=== PATIENT | male | born 1985 | race Caucasian/White ===

== ENCOUNTER 2016-06-16 08:42 | Emergency (ER) | payer SELFPAY ==
[2016-06-16] MEDS ORDERED: IPRATROPIUM/ALBUTEROL 3 ML VIAL NEB ONE (09:05)
[2016-06-16] MEDS ORDERED: IBUPROFEN 200 MG TAB PO ONE (09:06)
[2016-06-16] MEDS ORDERED: BENZONATATE PERLES 100 MG CAP PO ONE (09:06)
[2016-06-16] MEDS: AZITHROMYCIN 250 MG TAB PO ONE ×2 (09:13→09:14)
--- NOTE | 2016-06-16 09:53 | RAD ---
EXAM DESCRIPTION: XR CHEST 1 VIEW CLINICAL HISTORY: SOB, COUGH COMPARISON: None. IMPRESSION: Single AP portable upright view of the chest shows cardiac silhouette and pulmonary vasculature to be within normal limits. Lungs are normally aerated and clear. No obvious pleural effusion or pneumothorax is seen. Electronically signed by: Kai Cerna MD 06/16/2016 09:51
--- NOTE | 2016-06-16 10:00 | ED.PDOC ---
History of Present Illness - General Chief Complaint: Respiratory Problem Stated Complaint: Dont feel good Time Seen by Provider: 06/16/16 09:04 Source: patient Exam Limitations: no limitations - History of Present Illness Timing/Duration: other Cough Quality/Degree: no cough, productive cough Improving Factors: nothing Worsening Factors: nothing Associated Symptoms: cough, fever/chills, headache, nasal congestion Allergies/Adverse Reactions: Allergies NO KNOWN ALLERGY Allergy (Verified 06/15/12 07:50) Home Medications: Ambulatory Orders Tramadol HCl 50 mg PO Q6HR #20 tab 04/21/16 Albuterol Inhaler [Ventolin Hfa Inhaler] 2 puff INH Q4HR PRN #1 inh 06/16/16 Azithromycin Tab [Zithromax] 250 mg PO QD #4 tab 06/16/16 Benzonatate Perles [Tessalon Perles] 200 mg PO TID PRN #30 cap 06/16/16 Ibuprofen 800 mg PO Q8HR PRN #30 tab 06/16/16 Spacer/Aerosol-Holding Chamber [Aerochamber Plus] 1 mis INH DAILY #1 06/16/16 Review of Systems - Review of Systems Constitutional: States: chills, malaise EENTM: States: nose congestion. Denies: throat pain Respiratory: States: see HPI, cough, short of breath Cardiology: States: see HPI, chest pain. Denies: palpitations Gastrointestinal/Abdominal: Denies: abdominal pain, nausea, vomiting Musculoskeletal: Denies: joint pain, joint swelling Skin: Denies: change in color, dryness Neurological: States: headache. Denies: paresthesia Endocrine: States: no symptoms reported Hematologic/Lymphatic: States: no symptoms reported Past Medical History (General) - Patient Medical History Hx Seizures: No Hx Stroke: No Hx Dementia: No Hx Asthma: No Hx of COPD: No Hx Cardiac Disorders: Yes - Heart cath in 2014 - "they cleaned out some stuff" Hx Congestive Heart Failure: No Hx Pacemaker: No Hx Hypertension: Yes - "I don't take any meds" "I don't like to take meds" Hx Thyroid Disease: No Hx Diabetes: No Hx Gastroesophageal Reflux: No Hx Renal Disease: No Hx Cancer: No Hx of HIV: No Hx Hepatitis C: No Hx MRSA: No Surgical History: other - Vaccination History Hx Tetanus, Diphtheria Vaccination: Yes Hx Influenza Vaccination: No Hx Pneumococcal Vaccination: No Immunizations Up to Date: No - Social History Hx Tobacco Use: Yes Hx Chewing Tobacco Use: No Hx Alcohol Use: No Hx Substance Use: No Hx Substance Use Treatment: No Hx Depression: No Feels Threatened In Home Enviroment: No Hx Physical Abuse: No Hx Emotional Abuse: No Hx Suspected Abuse: No - Female History Patient is a Female of Child Bearing Age (10 -59 yrs old): No Patient : No - Triage Comment ED Triage Comment: Patient has had coughing and congestion for the past three days. Patient has not taken any OTC cold remedies because "I don't like to take meds" Family Medical History - Family History Mother Family History: No Known Physical Exam - Physical Exam General Appearance: Alert, Ill Appearing ENT Exam: hearing grossly normal, nasal congestion Neck: non-tender, full range of motion Respiratory: no respiratory distress, no accessory muscle use, wheezing Cardiovascular/Chest: regular rate, rhythm, no murmur Gastrointestinal/Abdominal: non tender, soft Extremity: normal range of motion, normal inspection Neurologic: normal mood/affect, oriented x 3 Skin Exam: normal color, warm/dry Progress - Progress Progress: 06/16/16 10:05 PT RESTING COMFORTABLY, REPORTS SOME IMPROVEMENT IN DYSPNEA AFTER DUONEB. COMPLETE RESOLUTION OF WHEEZING ON EXAM. - EKG/XRAY/CT Xray Comments: CXR NEGATIVE PER RADIOLOGY Departure - Departure Clinical Impression: Headache, Acute bronchitis Time of Disposition: 10:06 Disposition: Discharge to Home or Self Care Condition: Good Departure Forms: ED Discharge - Pt. Copy, Patient Portal Self Enrollment Instructions: DI for Acute Bronchitis Diet: resume usual diet Referrals: [facility] [Provider Group] - 1-2 Weeks Prescriptions: Albuterol Inhaler [Ventolin Hfa Inhaler] 2 puff INH Q4HR PRN #1 inh PRN Reason: Shortness Of Breath/Wheezing Ibuprofen 800 mg PO Q8HR PRN #30 tab PRN Reason: Pain Spacer/Aerosol-Holding Chamber [Aerochamber Plus] 1 mis INH DAILY #1 Benzonatate Perles [Tessalon Perles] 200 mg PO TID PRN #30 cap PRN Reason: Cough Azithromycin Tab [Zithromax] 250 mg PO QD #4 tab Home Medications: Ambulatory Orders Tramadol HCl 50 mg PO Q6HR #20 tab 04/21/16 Albuterol Inhaler [Ventolin Hfa Inhaler] 2 puff INH Q4HR PRN #1 inh 06/16/16 Azithromycin Tab [Zithromax] 250 mg PO QD #4 tab 06/16/16 Benzonatate Perles [Tessalon Perles] 200 mg PO TID PRN #30 cap 06/16/16 Ibuprofen 800 mg PO Q8HR PRN #30 tab 06/16/16 Spacer/Aerosol-Holding Chamber [Aerochamber Plus] 1 mis INH DAILY #1 06/16/16
[2016-06-16 10:45] VITALS: BP 116/61; TEMP 98.5; O2SAT 96
== END 2016-06-16 10:20 | disposition home or self-care (01) ==
LOC: ER 08:42
DX: J20.9 Acute bronchitis, unspecified (principal); R51 Headache; I10 Essential (primary) hypertension; I51.89 Other ill-defined heart diseases
CPT/HCPCS: 71010; 94640; 99284; J7620; Q0144

== ENCOUNTER 2016-07-17 09:15 | Emergency (ER) | payer SELFPAY ==
[2016-07-17] MEDS ORDERED: SODIUM CHLORIDE 0.9% (FLUSH) 10 ML SYG IV PRN (09:21)
[2016-07-17] MEDS ORDERED: ASPIRIN TABLET 325 MG TAB PO ONE (09:21)
[2016-07-17] MEDS ORDERED: ASPIRIN (CHEWABLE) 81 MG TAB ONE (09:21)
[2016-07-17] MEDS ORDERED: NITROGLYCERIN 0.4 MG 25 EA TAB SL ONE (09:22)
[2016-07-17] MEDS: NITROGLYCERIN 0.4 MG 25 EA TAB SL ONE ×3 (09:33→10:05)
--- NOTE | 2016-07-17 09:49 | ED.PDOC ---
History of Present Illness - General Chief Complaint: Chest Pain/MD Stated Complaint: chest pain Time Seen by Provider: 07/17/16 09:24 Source: patient, RN notes reviewed, Vital Signs reviewed, family Exam Limitations: no limitations - History of Present Illness Initial Comments: Patient is a 31 y/o male who has had substernal and left chest pain since 0730 this AM. He reports that he has previously had a heart cath and they "cleaned out some of his arteries." He has not had a stent. His pain is a sharp pressure, severe and radiates to his left arm. He does have shortness of breath , nausea, and dizziness. He has a family history of heart disease. His father had an MD at age 35. He smokes. Timing/Duration: 4-6 hours, getting worse Severity: severe Improving Factors: nothing Worsening Factors: nothing Associated Symptoms: chest pain, nausea/vomiting, shortness of breath Allergies/Adverse Reactions: Allergies NO KNOWN ALLERGY Allergy (Verified 06/15/12 07:50) Home Medications: Ambulatory Orders Tramadol HCl 50 mg PO Q6HR #20 tab 04/21/16 Albuterol Inhaler [Ventolin Hfa Inhaler] 2 puff INH Q4HR PRN #1 inh 06/16/16 Azithromycin Tab [Zithromax] 250 mg PO QD #4 tab 06/16/16 Benzonatate Perles [Tessalon Perles] 200 mg PO TID PRN #30 cap 06/16/16 Ibuprofen 800 mg PO Q8HR PRN #30 tab 06/16/16 Spacer/Aerosol-Holding Chamber [Aerochamber Plus] 1 mis INH DAILY #1 06/16/16 Review of Systems - Review of Systems Constitutional: States: no symptoms reported EENTM: States: no symptoms reported Respiratory: States: short of breath Cardiology: States: chest pain Gastrointestinal/Abdominal: States: nausea Genitourinary: States: no symptoms reported Musculoskeletal: States: no symptoms reported Skin: States: no symptoms reported Neurological: States: no symptoms reported Endocrine: States: no symptoms reported Hematologic/Lymphatic: States: no symptoms reported All other Systems: Reviewed and Negative Past Medical History (General) - Patient Medical History Hx Seizures: No Hx Stroke: No Hx Dementia: No Hx Asthma: No Hx of COPD: No Hx Cardiac Disorders: Yes - Heart cath in 2013 - "they cleaned out some stuff" Hx Congestive Heart Failure: No Hx Pacemaker: No Hx Hypertension: Yes - "I don't take any meds" "I don't like to take meds" Hx Thyroid Disease: No Hx Diabetes: No Hx Gastroesophageal Reflux: No Hx Renal Disease: No Hx Cancer: No Hx of HIV: No Hx Hepatitis C: No Hx MRSA: No Surgical History: no surgical history - Vaccination History Hx Tetanus, Diphtheria Vaccination: Yes Hx Influenza Vaccination: No Hx Pneumococcal Vaccination: No - Social History Hx Tobacco Use: Yes Hx Chewing Tobacco Use: No Hx Alcohol Use: No Hx Substance Use: No Hx Substance Use Treatment: No Hx Depression: No Hx Physical Abuse: No Hx Emotional Abuse: No Hx Suspected Abuse: No - Female History Patient : No - Triage Comment ED Triage Comment: Pt states he started having chest pain at 0745 this am. Chest pain on left chest that radiates down left arm. Hx of cardiac cath. Family Medical History - Family History Mother Family History: No Known Physical Exam - Physical Exam General Appearance: Alert, Obvious distress Ears, Nose, Throat: hearing grossly normal Respiratory: chest non-tender, lungs clear, normal breath sounds, no respiratory distress, no accessory muscle use Cardiovascular/Chest: normal peripheral pulses, regular rate, rhythm, no edema, no gallop, no murmur Gastrointestinal/Abdominal: normal bowel sounds, non tender, soft, no organomegaly, no pulsatile mass Extremity: normal range of motion, non-tender, no pedal edema Neurologic: alert, normal mood/affect, oriented x 3 Skin Exam: normal color, other - mild diaphoresis Progress - Results/Orders Results/Orders: 07/17/16 07/17/16 07/17/16 09:15 09:20 09:25 Pulse Rate [ 81 66 Right] Respiratory 20 20 20 Rate Blood Pressure 160/107 155/76 [Right Arm] O2 Sat by Pulse 95 95 Oximetry 07/17/16 07/17/16 07/17/16 09:36 10:16 11:12 Pulse Rate [ 66 57 L Right] Respiratory 20 20 Rate Blood Pressure 140/88 119/67 [Right Arm] O2 Sat by Pulse 90 L 96 96 Oximetry 07/17/16 09:21 IV Care:Saline Lock per Protoc QSHIFT Telemetry .ONCE Sodium Chloride 0.9% (Flush) [Saline Flush Syringe] 10 ml IV PRN PRN EKG Stat Pulse Ox Stat Pulse Oximetry Assessment DAILY Laboratory Results WBC 5.5 K/mm3 (4.8-10.8) 07/17/16 09:30 RBC 5.78 M/mm3 (4.70-6.10) 07/17/16 09:30 Hgb 16.1 gm/dL (14.0-18.0) 07/17/16 09:30 Hct 47.8 % (42.0-52.0) 07/17/16 09:30 MCV 82.6 fl (80.0-94.0) 07/17/16 09:30 MCH 27.9 pg (27.0-31.0) 07/17/16 09:30 MCHC 33.8 g/dL (33.0-37.0) 07/17/16 09:30 RDW 13.6 % (11.5-14.5) 07/17/16 09:30 Plt Count 151 K/mm3 (130-400) 07/17/16 09:30 MPV 9.6 fl (7.40-10.4) 07/17/16 09:30 Absolute Neuts (auto) 3.30 K/uL (1.8-6.8) 07/17/16 09:30 Absolute Lymphs (auto) 1.40 K/uL (1.0-3.4) 07/17/16 09:30 Absolute Monos (auto) 0.60 K/uL (0.2-0.8) 07/17/16 09:30 Absolute Eos (auto) 0.10 K/uL (0.0-0.4) 07/17/16 09:30 Absolute Basos (auto) 0.00 K/uL (0.0-0.1) 07/17/16 09:30 Neutrophils % 60.5 % (42.0-78.0) 07/17/16 09:30 Lymphocytes % 25.0 % (20.0-50.0) 07/17/16 09:30 Monocytes % 11.2 % (2.0-9.0) H 07/17/16 09:30 Eosinophils % 2.4 % (1.0-5.0) 07/17/16 09:30 Basophils % 0.9 % (0.0-2.0) 07/17/16 09:30 PT 10.1 SECONDS (9.4-12.5) 07/17/16 09:30 INR 0.890 07/17/16 09:30 PTT (SP) 30.4 SECONDS (25.1-36.5) 07/17/16 09:30 D-Dimer, Quantitative < 200 ng/mL (0-230) 07/17/16 09:30 Sodium 136 mmol/L (135-145) 07/17/16 09:30 Potassium 4.1 mmol/L (3.6-5.0) 07/17/16 09:30 Chloride 104 mmol/L (101-111) 07/17/16 09:30 Carbon Dioxide 25 mmol/L (21-31) 07/17/16 09:30 Anion Gap 11.1 (12-18) L 07/17/16 09:30 BUN 16 mg/dL (7-18) 07/17/16 09:30 Creatinine 0.91 mg/dL (0.6-1.3) 07/17/16 09:30 BUN/Creatinine Ratio 17.6 (10-20) 07/17/16 09:30 Random Glucose 100 mg/dL (70-105) 07/17/16 09:30 Serum Osmolality 273.2 mOsm/L (275-295) L 07/17/16 09:30 Calcium 9.6 mg/dL (8.4-10.2) 07/17/16 09:30 Magnesium 2.0 mg/dL (1.8-2.5) 07/17/16 09:30 Creatine Kinase 111 IU/L (38-174) 07/17/16 13:01 CK-MB (CK-2) 1.8 ng/mL (0.0-4.4) 07/17/16 13:01 CK-MB (CK-2) % Not Reportable 07/17/16 13:01 Troponin I < 0.02 ng/mL (0.01-0.05) 07/17/16 13:01 B-Natriuretic Peptide < 5.0 pg/ml (0-100) 07/17/16 09:30 - EKG/XRAY/CT EKG: Sinus - 85 bpm, no ST T wave changes - Intervals NML, Unchanged from - 2015 Comments: Normal axis; Normal EKG XRAY: chest - Normal CT Ordered: No CT Interpretation Call Back: No Departure - Departure Clinical Impression: Chest pain Qualifiers: Chest pain type: unspecified Qualifier Code: (R07.9) Chest pain, unspecified Time of Disposition: 14:22 Disposition: Transfer to Hospital Departure Forms: ED Discharge - Pt. Copy, Patient Portal Self Enrollment Home Medications: Ambulatory Orders Tramadol HCl 50 mg PO Q6HR #20 tab 04/21/16 Albuterol Inhaler [Ventolin Hfa Inhaler] 2 puff INH Q4HR PRN #1 inh 06/16/16 Azithromycin Tab [Zithromax] 250 mg PO QD #4 tab 06/16/16 Benzonatate Perles [Tessalon Perles] 200 mg PO TID PRN #30 cap 06/16/16 Ibuprofen 800 mg PO Q8HR PRN #30 tab 06/16/16 Spacer/Aerosol-Holding Chamber [Aerochamber Plus] 1 mis INH DAILY #1 06/16/16 Transfer to Outside Facility - Transfer Information Accepting Provider:: Dr Bryson Accepting Facility: [facility] Reason for Transfer: required specialist not available - Cardiology
[2016-07-17] MEDS ORDERED: ASPIRIN (CHEWABLE) 81 MG TAB PO ONE (09:58)
[2016-07-17] MEDS ORDERED: MORPHINE SULFATE INJ 10 MG/ML VIAL ONE (10:36)
[2016-07-17] MEDS ORDERED: SODIUM CHLORIDE 0.9% 10 ML VIAL ONE ×2 (10:37→12:39)
[2016-07-17] MEDS ORDERED: ONDANSETRON 4 MG TAB ONE (10:37)
[2016-07-17] MEDS ORDERED: MORPHINE SULFATE INJ 10 MG/ML VIAL IV ONE ×2 (10:40→12:11)
--- NOTE | 2016-07-17 10:57 | RAD ---
EXAM DESCRIPTION: XR CHEST 1 VIEW CLINICAL HISTORY: chest pain COMPARISON: 06/16/2016 TECHNIQUE: Frontal chest radiograph. FINDINGS: Heart size is normal. Lungs are clear. No acute osseous injury. IMPRESSION: No acute chest process Electronically signed by: Deep Austin MD 07/17/2016 10:55
[2016-07-17] MEDS ORDERED: NITROGLYCERIN 2% 1 GM UD TOP ONE (11:18)
[2016-07-17] MEDS ORDERED: ONDANSETRON 4 MG TAB PO ONE (11:20)
[2016-07-17] MEDS ORDERED: ACETAMINOPHEN 325 MG TAB PO ONE (14:42)
[2016-07-17 15:35] VITALS: BP 124/96; O2SAT 95
== END 2016-07-17 15:45 | disposition short-term general hospital (02) ==
LOC: ER 09:15
DX: R07.9 Chest pain, unspecified (principal); I10 Essential (primary) hypertension; F17.200 Nicotine dependence, unspecified, uncomplicated; Z82.49 Family history of ischemic heart disease and other diseases of the circulatory system
CPT/HCPCS: 36415; 71010; 80048; 82550; 82553; 83880; 84484; 85025; 85379; 85610; 85730; 93005; 94760; J2270

== ENCOUNTER 2016-11-15 22:38 | Emergency (ER) | payer SELFPAY ==
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
[2016-11-15 23:01] VITALS: O2SAT 96
--- NOTE | 2016-11-15 23:16 | RAD ---
EXAM: Three view(s) of the left knee. INDICATION: Pain. COMPARISON: None. FINDINGS: No acute fracture or dislocation. No large soft tissue swelling. IMPRESSION: 1. No acute fracture. Electronically signed by: Latrell Hayward MD 11/15/2016 11:17 PM CDT Workstation: [id number]
[2016-11-15] MEDS ORDERED: HYDROCOD/APAP 10/325 (ER DISP) # 3 tablets PO ONE (23:35)
[2016-11-16 00:05] VITALS: BP 137/96; TEMP 97.2
== END 2016-11-16 00:05 | disposition home or self-care (01) ==
LOC: ER 22:38
DX: S80.02XA Contusion of left knee, initial encounter (principal); Z79.899 Other long term (current) drug therapy; I10 Essential (primary) hypertension; Z87.891 Personal history of nicotine dependence; W19.XXXA Unspecified fall, initial encounter; Y93.19 Activity, other involving water and watercraft; Y92.9 Unspecified place or not applicable

== ENCOUNTER 2017-07-26 01:12 | Emergency (ER) | payer SELFPAY ==
[2017-07-26 01:30] VITALS: BP 128/88; TEMP 97.2; O2SAT 97
[2017-07-26] MEDS ORDERED: OPHTHALMIC SALT SOLUTION 120 ML BTTL ONE (01:43)
[2017-07-26] MEDS ORDERED: PROPARACAINE 0.5% OPHTH SOL 15 ML BTTL ONE (01:48)
[2017-07-26] MEDS ORDERED: PROPARACAINE 0.5% OPHTH SOL 15 ML BTTL RIGHT_EYE ONE (01:55)
[2017-07-26] MEDS ORDERED: FLUORESCEIN SODIUM OPHTH STRIP RIGHT_EYE ONE (01:58)
--- NOTE | 2017-07-26 02:05 | ED.PDOC ---
History of Present Illness - General Chief Complaint: Eye Problems Stated Complaint: Eye Injury Time Seen by Provider: 07/26/17 01:34 Source: patient Exam Limitations: no limitations Additional Information: PT C/O ANGELITO EYE DISCOMFORT. ONSET THIS EVENING. "FEELS LIKE GRAVEL IN EYES" PHOTOPHOBIA. WORKS AROUND WELDING WEARS CLEAR SAFETY GLASSES. DID DO SOME WELDING YESTERDAY BUT WORE HELMENT. - History of Present Illness Timing/Duration: other - THIS EVENING Severity: moderate EENT Location: eye (R), eye (L) Improving Factors: nothing Worsening Factors: nothing Associated Symptoms: other - BLURRED VISION Allergies/Adverse Reactions: Allergies NO KNOWN ALLERGY Allergy (Verified 07/26/17 01:22) Home Medications: Ambulatory Orders Tramadol HCl 50 mg PO Q6HR #20 tab 04/21/16 Albuterol Inhaler [Ventolin Hfa Inhaler] 2 puff INH Q4HR PRN #1 inh 06/16/16 Azithromycin Tab [Zithromax] 250 mg PO QD #4 tab 06/16/16 Benzonatate Perles [Tessalon Perles] 200 mg PO TID PRN #30 cap 06/16/16 Ibuprofen 800 mg PO Q8HR PRN #30 tab 06/16/16 Spacer/Aerosol-Holding Chamber [Aerochamber Plus] 1 mis INH DAILY #1 06/16/16 Tramadol HCl 50 mg PO Q6HRS PRN #20 tab 11/15/16 Trolamine Salicylate [Aspercreme] 10 % EX TID #1 lot 11/15/16 Review of Systems - Review of Systems Constitutional: Denies: chills, fever EENTM: States: eye pain, blurred vision. Denies: double vision, nose congestion , throat pain Respiratory: Denies: cough, short of breath Skin: States: no symptoms reported Neurological: States: no symptoms reported Past Medical History (General) - Patient Medical History Hx Seizures: No Hx Stroke: No Hx Dementia: No Hx Asthma: No Hx of COPD: No Hx Cardiac Disorders: No Hx Congestive Heart Failure: No Hx Pacemaker: No Hx Hypertension: No Hx Thyroid Disease: No Hx Diabetes: No Hx Gastroesophageal Reflux: No Hx Renal Disease: No Hx Cancer: No Hx of HIV: No Hx Hepatitis C: No Hx MRSA: No Surgical History: other - Vaccination History Hx Tetanus, Diphtheria Vaccination: No Hx Influenza Vaccination: No Hx Pneumococcal Vaccination: No - Social History Hx Tobacco Use: Yes Hx Chewing Tobacco Use: No Hx Alcohol Use: Yes Hx Substance Use: No Hx Substance Use Treatment: No Hx Depression: No Hx Physical Abuse: No Hx Emotional Abuse: No Hx Suspected Abuse: No - Female History Patient : No - Triage Comment ED Triage Comment: Presents to ED POV--Amb--c/o Rt eye foreign body ? maybe states--onset 1999 last night. Eye bilat. are red and tearing and pt has been rubbing eyes. Family Medical History - Family History Mother Family History: Unknown Physical Exam - Physical Exam General Appearance: Alert, Anxious, No apparent distress Eye Exam: bilateral normal - NO FB, ANT CHAMBER CLEAR, CORNEA CLEAR Neck: full range of motion, normal inspection Neurologic: alert, normal mood/affect Skin Exam: normal color, warm/dry Procedures - Eye Procedure Left Alcaine Drops Administered: Yes Cyclogel 2 Drops Administered: No Progress: EXCELLENT RELIEF WITH PROPARACAINE. FLUORASCEIN STAIN SHOWS MINIMAL UPTAKE IN A LINEAR FASHION ACROSS MID CORNEA. Right Alcaine Drops Administered: Yes Cyclogel 2 Drops Administered: No Progress: EXCELLENT RELIEF WITH PROPARACAINE. FLUORASCEIN STAIN SHOWS MINIMAL UPTAKE IN A LINEAR FASHION ACROSS MID CORNEA. Departure - Departure Clinical Impression: Welders' keratitis of both eyes Time of Disposition: 02:13 Disposition: Discharge to Home or Self Care Condition: Good Departure Forms: ED Discharge - Pt. Copy, Patient Portal Self Enrollment Instructions: DI for Eye Pain, DI for Eye Flash Burn Home Medications: Ambulatory Orders Tramadol HCl 50 mg PO Q6HR #20 tab 04/21/16 Albuterol Inhaler [Ventolin Hfa Inhaler] 2 puff INH Q4HR PRN #1 inh 06/16/16 Azithromycin Tab [Zithromax] 250 mg PO QD #4 tab 06/16/16 Benzonatate Perles [Tessalon Perles] 200 mg PO TID PRN #30 cap 06/16/16 Ibuprofen 800 mg PO Q8HR PRN #30 tab 06/16/16 Spacer/Aerosol-Holding Chamber [Aerochamber Plus] 1 mis INH DAILY #1 06/16/16 Tramadol HCl 50 mg PO Q6HRS PRN #20 tab 11/15/16 Trolamine Salicylate [Aspercreme] 10 % EX TID #1 lot 11/15/16
[2017-07-26] MEDS ORDERED: HYDROCOD/APAP 5/325 (ER DISP) #3 TAB PO ONE (02:15)
== END 2017-07-26 02:35 | disposition home or self-care (01) ==
LOC: ER 01:12
DX: H16.133 Photokeratitis, bilateral (principal); Z87.891 Personal history of nicotine dependence; W89.8XXA Exposure to other man-made visible and ultraviolet light, initial encounter; Y92.9 Unspecified place or not applicable

== ENCOUNTER 2017-11-20 11:48 | Emergency (ER) | payer SELFPAY ==
[2017-11-20] MEDS ORDERED: SODIUM CHLORIDE 0.9% 1000ML 1,000 ML ONE (11:58)
--- NOTE | 2017-11-20 12:00 | ED.PDOC ---
History of Present Illness - General Chief Complaint: General Stated Complaint: flank pain Time Seen by Provider: 11/20/17 11:59 Source: patient Exam Limitations: no limitations - History of Present Illness Initial Comments: Polo Sheppard 32 y/o male with history of ureteral calculus in the past came to ER with right sharp right flank pain radiating to the right groin starting an hour ago while walking.No dysuria ,no hematuria ,feels nauseated. Severity: moderate Improving Factors: nothing Worsening Factors: nothing Associated Symptoms: denies symptoms Allergies/Adverse Reactions: Allergies NO KNOWN ALLERGY Allergy (Verified 07/26/17 01:22) Review of Systems - Review of Systems Constitutional: States: no symptoms reported EENTM: States: no symptoms reported Respiratory: States: no symptoms reported Cardiology: States: no symptoms reported Gastrointestinal/Abdominal: States: no symptoms reported Genitourinary: States: see HPI All other Systems: Reviewed and Negative, No Change from Baseline Past Medical History (General) - Patient Medical History Hx Seizures: No Hx Stroke: No Hx Dementia: No Hx Asthma: No Hx of COPD: No Hx Cardiac Disorders: No Hx Congestive Heart Failure: No Hx Pacemaker: No Hx Hypertension: No Hx Thyroid Disease: No Hx Diabetes: No Hx Gastroesophageal Reflux: No Hx Renal Disease: No Hx Cancer: No Hx of HIV: No Hx Hepatitis C: No Hx MRSA: No Hx Other PMH: Yes - nephrolithiasis - Vaccination History Hx Tetanus, Diphtheria Vaccination: No Hx Influenza Vaccination: No Hx Pneumococcal Vaccination: No - Social History Hx Tobacco Use: Yes Hx Chewing Tobacco Use: No Hx Alcohol Use: Yes Hx Substance Use: No Hx Substance Use Treatment: No Hx Depression: No Hx Physical Abuse: No Hx Emotional Abuse: No Hx Suspected Abuse: No - Female History Patient : No Family Medical History - Family History Mother Hx Family Hypertension: Yes - parents Hx Family Diabetes: Yes - parents Physical Exam - Physical Exam General Appearance: Alert, Anxious, No apparent distress Eye Exam: bilateral normal Ears, Nose, Throat: hearing grossly normal, normal ENT inspection Neck: non-tender, supple Respiratory: chest non-tender, lungs clear, normal breath sounds Cardiovascular/Chest: normal peripheral pulses, regular rate, rhythm, no murmur Peripheral Pulses: radial,right: 2+, radial,left: 2+ Gastrointestinal/Abdominal: normal bowel sounds, non tender, soft, no organomegaly Back Exam: no CVA tenderness, no vertebral tenderness Extremity: non-tender, no pedal edema, no calf tenderness Neurologic: alert, oriented x 3 Skin Exam: normal color, warm/dry Lymphatic: no adenopathy Progress - Progress Progress: 11/20/17 12:19 Vital Signs - 8 hr 11/20/17 11:50 Temperature 97.4 F L Pulse Rate [ 101 H pulse ox] Respiratory 20 Rate Blood Pressure 156/123 [left brachial] O2 Sat by Pulse 97 Oximetry Departure - Departure Clinical Impression: Flank pain, acute, Bilateral nephrolithiasis, Fatty liver disease, nonalcoholic Time of Disposition: 14:04 Disposition: Discharge to Home or Self Care Condition: Fair Departure Forms: ED Discharge - Pt. Copy, Patient Portal Self Enrollment Instructions: Nonalcoholic Fatty Liver Disease, DI for Kidney Stones, Kidney Stones -- Adult Diet: low fat, low cholesterol, other - Drink extra fluids Additional Instructions: NEED TO SIGN UP WITH PRIMARY MD;May take Vitamin -E 400 mg daily(over the counter);Aleve (otc)-1-2 tablets am/pm for pain as needed
[2017-11-20 12:08] VITALS: TEMP 97.4
[2017-11-20] MEDS ORDERED: TAMSULOSIN 0.4 MG CAP PO ONE (12:10)
[2017-11-20] MEDS ORDERED: KETOROLAC TROMETHAMINE INJ 30 MG/ML VIAL IV ONE (12:10)
[2017-11-20] MEDS ORDERED: LACTATED RINGERS 1,000 ML IVS ONE (12:11)
[2017-11-20] MEDS ORDERED: PROMETHAZINE HCL INJ 25 MG/ML VIAL IM ONE (12:16)
--- NOTE | 2017-11-20 12:35 | CT ---
Study: CT abdomen and pelvis. Indication: Flank pain. Calculus ureteral Technique: CT of the abdomen and pelvis obtained without intravenous contrast. This exam was performed according to our departmental dose-optimization program, which includes automated exposure control, adjustment of the mA and/or kV according to patient size and/or use of iterative reconstruction technique. Comparison: None. Findings: Lower chest, gallbladder, pancreas, spleen, adrenal glands, bladder, and prostate gland are normal unenhanced CT appearance. Patchy decreased attenuation noted throughout the majority of the right hepatic lobe likely reflecting areas of focal fatty infiltration. Multiple central moderate bilateral renal calculi noted measuring up to 3.5 mm. No obstructing stone. No hydronephrosis. Stomach, small bowel, and colon unremarkable. The appendix is not definitively visualized. No free fluid. No free air. No pathologically enlarged lymphadenopathy. No acute osseous abnormality. Impression: Multiple central nonobstructing bilateral millimetric renal calculi. No hydronephrosis. Suspected extensive fatty infiltration throughout the right hepatic lobe. Correlation with liver function tests recommended. Nonemergent MRI of the liver with and without intravenous contrast could better evaluate. Electronically signed by: Kvng Hunter MD 11/20/2017 12:34 PM CDT
[2017-11-20 12:56] VITALS: BP 153/89
[2017-11-20] MEDS ORDERED: ORPHENADRINE CITRATE 30 MG/ML AMP IV ONE (13:01)
[2017-11-20 14:28] VITALS: O2SAT 100
== END 2017-11-20 14:15 | disposition home or self-care (01) ==
LOC: ER 11:48
DX: N20.0 Calculus of kidney (principal); K76.0 Fatty (change of) liver, not elsewhere classified; Z87.891 Personal history of nicotine dependence
CPT/HCPCS: 36415; 74176; 80048; 80076; 80307; 81001; 82550; 83690; 85025; 93005; J1885; J2360; J2550; J7120